=== PATIENT | female | born 1960 | race Caucasian/White ===

== ENCOUNTER → 2016-11-11 | Outpatient (CLI) | payer OTHER ==
[~2016-11-11] MED LIST: ACETAMINOPHEN650 M5 PO; ADVAIR 250-501 EACH INH; ADVAIR HFA 1112 UNIT INH; ALBUTEROL INH INH; AMITRIPTYLINE H50 M2 PO; AMLODIPINE BESYL5 MG PO; ATIVAN1 MG PO; ATIVAN2 MG PO; AUGMENTIN PO; AVELOX 400 MG400 MG PO; BENTYL10 MG PO; BYSTOLIC 5 MG5 M1 PO; BYSTOLIC10 MG PO; CIPROFLOXACIN500 M1 PO; CLONIDINE HCL0.2 M2 PO; COUMADIN 2 MG TA2 M1 PO; COUMADIN 2.5MG2.5 M1; COUMADIN 3 MG TA3 MG PO; COUMADIN 4 MG TA4 M1 PO; DOLOPHINE HCL10 MG PO; ENDOCET 10-3251 EACH; ENOXAPARIN60 MG/0.6; ENOXAPARIN80 MG/0.8; ENOXAPARIN80 MG/0.8 SQ; FEVERALL JR 32325 MG RE; FLEXERIL PO; FLONASE NS; FUROSEMIDE 40 M40 MG PO; GLYCOLAX POWDER17 G1 PO; HYDROCODON-ACE1 EAC8 PO; JANTOVEN3 MG PO; K-DUR 20 MEQ T20 MEQ PO; LASIX 40 MG TAB40 M1 PO; LORTAB 5 MG/5001 TA1 PO; LORTAB 7.5/5001 TA3 PO; LORTAB PO; LOVENOX; METHADONE PO; MIRALAX255 GM PO; MUCINEX TA600 MG/TA1 PO; NEURONTIN 300300 M1 PO; NORCO 5-325 TA1 EACH PO; NORVASC 5 MG TAB5 MG PO; OXYCONTIN PO; PERCOCET 10-321 EACH PO; PERCOCET 5-3251 EACH PO; PREDNISONE 10 M10 MG; PRILOSEC40 MG PO; PROTONIX40 M2 PO; REMERON30 MG PO; SEROQUEL PO; SEROQUEL XR 30300 M1; SEROQUEL XR 30300 M1 PO; SINGULAIR 10 MG10 MG PO; TIZANIDINE HCL4 MG PO; TYLENOL EX-STR500 M2 PO; VERAPAMIL ER120 MG PO; VERAPAMIL ER180 MG PO; XOPENEX0.63 MG/3 INH; ZANAFLEX4 M1 PO; ZOFRAN ODT4 MG PO
== END ==
LOC: RAD 11-10 01:40
DX: Z12.31 Encounter for screening mammogram for malignant neoplasm of breast (principal)

== ENCOUNTER → 2016-11-18 | Outpatient (CLI) | payer OTHER | LOC: CAT → NUC 10:30 → CAT 15:02 | DX: R07.89 Other chest pain (principal) ==

== ENCOUNTER → 2016-11-21 | Outpatient (CLI) | payer OTHER | LOC: CAT 14:48 | DX: Z13.6 Encounter for screening for cardiovascular disorders (principal) ==

== ENCOUNTER → 2017-01-17 | Outpatient (CLI) | payer OTHER | LOC: NUC 11:10 | DX: I27.2 Other secondary pulmonary hypertension (principal); I26.99 Other pulmonary embolism without acute cor pulmonale ==

== ENCOUNTER → 2018-01-10 | Outpatient (CLI) | payer OTHER | LOC: ULTRA 12:47 | DX: N63.10 Unspecified lump in the right breast, unspecified quadrant (principal) ==

== ENCOUNTER → 2018-06-27 | Outpatient (CLI) | payer OTHER | LOC: RAD 01:12 | DX: N63.11 Unspecified lump in the right breast, upper outer quadrant (principal); R92.2 Inconclusive mammogram ==

== ENCOUNTER → 2018-08-08 | Outpatient (CLI) | payer OTHER ==
--- NOTE | 2018-08-08 15:16 | 2DMMODE ---
[facility] [place] [address] 2 D/M-MODE ECHOCARDIOGRAM Name: JESENIA KRISHNAN Room #: REG [facility]#: [id number] ������������� Admission: 08/08/18 ������������� Attend Phys: Migue Liang, Discharge: ��� ������������� ��� Date of : 60 Date of Service: 08/08/18 1515 �� Report #: [id number] �������� ��������������������������������������������[id number] THIS REPORT FOR: //name// APPROVED REPORT Study performed: 08/08/2018 14:27:40 EXAM: Comprehensive 2D, Doppler, and color-flow Echocardiogram Patient Location: Out-Patient Status: routine BSA: 1.97 HR: 72 bpm BP: 110/76 mmHg Rhythm: NSR Other Information Study Quality: Good Indications Pulmonary Hypertension Dyspnea 2D Dimensions RVDd: 36.81 mm IVSd: 9.47 (7-11mm) LVOT Diam: 21.19 (18-24mm) LVDd: 51.77 mm PWd: 8.56 (7-11mm) Ascending Ao: 36.94 (22-36mm) LVDs: 30.34 (25-40mm) Aortic Root: 34.89 mm Volumes Left Atrial Volume (Systole) Single Plane 4CH: 47.29 mL Single Plane 2CH: 65.42 mL LA ESV Index: 31.00 mL/m2 Aortic Valve AoV Peak Cordell.: 1.99 m/s AO Peak Gr.: 15.79 mmHg LVOT Max P.92 mmHg LVOT Max V: 1.22 m/s IGNACIA Vmax: 2.16 cm2 Mitral Valve E/A Ratio: 1.3 MV Decel. Time: 130.14 ms [facility] [email or web address] [place] [address] 2 D/M-MODE ECHOCARDIOGRAM Name: JESENIA KRISHNAN Room #: REG CL [facility]#: [id number] ������������� Admission: 08/08/18 ������������� Attend Phys: Migue Liang, Discharge: ��� ������������� ��� Date of : 60 Date of Service: 08/08/18 1515 �� Report #: [id number] �������� ��������������������������������������������[id number] MV E Max Cordell.: 0.99 m/s MV A Cordell.: 0.74 m/s MV PHT: 37.74 ms IVRT: 55.36 ms Pulmonary Valve PV Peak Cordell.: 1.26 m/s PV Peak Gr.: 6.32 mmHg Pulmonary Vein P Vein S: 0.68 m/s P Vein D: 0.57 m/s P Vein S/D Ratio: 1.19 Tricuspid Valve TR Peak Cordell.: 3.30 m/s RAP Estimate: 5.00 mmHg TR Peak Gr.: 43.45 mmHg PA Pressure: 48.00 mmHg Left Ventricle The left ventricle is normal size. There is normal LV segmental wall motion. There is normal left ventricular wall thickness. Left ventricular systolic function is normal. LVEF is 60-65%. Moderate diastolic dysfunction is present (pseudonormal filling). Right Ventricle The right ventricle is normal size. The right ventricular systolic function is normal. Atria The left atrium size is normal. The right atrium size is normal. Aortic Valve The aortic valve is normal in structure. No aortic regurgitation is present. There is no aortic valvular stenosis. Mitral Valve The mitral valve is normal in structure. Trace mitral regurgitation. Tricuspid Valve The tricuspid valve is normal in structure. Mild to moderate tricuspid regurgitation. Estimated PAP is 45-50mmHg. Pulmonic Valve The pulmonary valve is normal in structure. Trace pulmonic [facility] [address] [place] [address] 2 D/M-MODE ECHOCARDIOGRAM Name: JESENIA KRISHNAN Room #: REG [facility]#: [id number] ������������� Admission: 08/08/18 ������������� Attend Phys: Migue Liang, Discharge: ��� ������������� ��� Date of : 60 Date of Service: 08/08/18 1515 �� Report #: [id number] �������� ��������������������������������������������[id number] regurgitation. Great Vessels The aortic root is normal in size. The ascending aorta is normal in size. IVC is normal in size and collapses >50% with inspiration. Pericardium There is no pericardial effusion. <Conclusion> The left ventricle is normal size. LVEF is 60-65%. The aortic valve is normal in structure. The mitral valve is normal in structure. Trace mitral regurgitation. The tricuspid valve is normal in structure. Mild to moderate tricuspid regurgitation. Estimated PAP is 45-50mmHg. The pulmonary valve is normal in structure. Trace pulmonic regurgitation. There is no pericardial effusion. ��������������������������������������������� <ELECTRONICALLY SIGNED> ���������������������������������������� By: Ever Breaux MD ��������������������������������������������� 08/08/18 1515 1515 1515 Ever Breaux MD /INF
== END ==
LOC: CV 08-02 07:01
DX: I07.1 Rheumatic tricuspid insufficiency (principal); I27.20 Pulmonary hypertension, unspecified; J45.909 Unspecified asthma, uncomplicated

== ENCOUNTER → 2019-02-20 | Outpatient (CLI) | payer OTHER | LOC: RAD 02-13 14:22 | DX: N63.11 Unspecified lump in the right breast, upper outer quadrant (principal) ==

== ENCOUNTER → 2019-05-30 | Outpatient (CLI) | payer OTHER | LOC: HYPER 09:58 | DX: L97.222 Non-pressure chronic ulcer of left calf with fat layer exposed (principal); I89.0 Lymphedema, not elsewhere classified; L03.115 Cellulitis of right lower limb; I48.91 Unspecified atrial fibrillation; K21.9 Gastro-esophageal reflux disease without esophagitis; I10 Essential (primary) hypertension; M54.02 Panniculitis affecting regions of neck and back, cervical region; I27.20 Pulmonary hypertension, unspecified; G47.00 Insomnia, unspecified; D64.9 Anemia, unspecified; G89.29 Other chronic pain; G47.33 Obstructive sleep apnea (adult) (pediatric); F41.9 Anxiety disorder, unspecified; Z86.711 Personal history of pulmonary embolism ==

== ENCOUNTER → 2019-06-10 | Outpatient (CLI) | payer OTHER | LOC: HYPER 13:13 | DX: L97.222 Non-pressure chronic ulcer of left calf with fat layer exposed (principal); L97.812 Non-pressure chronic ulcer of other part of right lower leg with fat layer exposed; L03.115 Cellulitis of right lower limb; I89.0 Lymphedema, not elsewhere classified; M54.02 Panniculitis affecting regions of neck and back, cervical region; G89.29 Other chronic pain; K21.9 Gastro-esophageal reflux disease without esophagitis; I10 Essential (primary) hypertension; M19.90 Unspecified osteoarthritis, unspecified site; I48.91 Unspecified atrial fibrillation; K58.9 Irritable bowel syndrome, unspecified; G47.00 Insomnia, unspecified; G47.33 Obstructive sleep apnea (adult) (pediatric); F41.9 Anxiety disorder, unspecified; Z79.01 Long term (current) use of anticoagulants ==

== ENCOUNTER → 2019-06-27 | Outpatient (CLI) | payer OTHER | LOC: RAD 12:34 | DX: J45.50 Severe persistent asthma, uncomplicated (principal) ==

== ENCOUNTER → 2020-02-27 | Outpatient (CLI) | payer OTHER ==
--- NOTE | 2020-02-27 13:20 | 2DMMODE ---
[facility] [place] [address] 2 D/M-MODE ECHOCARDIOGRAM Name: JESENIA KRISHNAN Room #: REG [facility]#: [id number] Admission: 02/27/20 Attend Phys: Migue Liang MD Discharge: Date of : 60 Report #: [id number] THIS REPORT FOR: cc: Margarito Smith MD, Neal A. MD Lammoglia, Francisco J. MD ~ APPROVED REPORT Study performed: 02/27/2020 11:15:59 EXAM: Comprehensive 2D, Doppler, and color-flow Echocardiogram Patient Location: Echo lab Status: routine BSA: 2.03 HR: 63 bpm BP: 138/78 mmHg Rhythm: NSR Other Information Study Quality: Adequate Indications Dyspnea 2D Dimensions RVDd: 39.30 mm IVSd: 9.68 (7-11mm) LVOT Diam: 18.91 (18-24mm) LVDd: 51.92 mm PWd: 10.07 (7-11mm) Ascending Ao: 31.95 (22-36mm) LVDs: 33.99 (25-40mm) Aortic Root: 29.12 mm IVC: 25.00 mm Volumes Left Atrial Volume (Systole) Single Plane 4CH: 58.31 mL Single Plane 2CH: 59.28 mL LA ESV Index: 31.00 mL/m2 Aortic Valve AoV Peak Cordell.: 1.98 m/s AO Peak Gr.: 15.68 mmHg LVOT Max P.57 mmHg LVOT Max V: 1.77 m/s IGNACIA Vmax: 2.51 cm2 [facility] [address] [address] 2 D/M-MODE ECHOCARDIOGRAM Name: JESENIA KRISHNAN Room #: REG [facility]#: [id number] Admission: 02/27/20 Attend Phys: Migue Liang, Discharge: Date of : 60 Report #: [id number] Mitral Valve E/A Ratio: 1.4 MV Decel. Time: 194.04 ms MV E Max Cordell.: 1.04 m/s MV A Cordell.: 0.76 m/s MV PHT: 56.27 ms IVRT: 55.36 ms Pulmonary Valve PV Peak Cordell.: 0.99 m/s PV Peak Gr.: 3.95 mmHg Pulmonary Vein P Vein S: 0.55 m/s P Vein A: 0.27 m/s P Vein D: 0.47 m/s P Vein A Dur.: 129.2 msec P Vein S/D Ratio: 1.17 Tricuspid Valve TR Peak Cordell.: 3.41 m/s RAP Estimate: 5.00 mmHg TR Peak Gr.: 46.63 mmHg PA Pressure: 52.00 mmHg Left Ventricle The left ventricle is normal size. There is normal LV segmental wall motion. There is normal left ventricular wall thickness. The left ventricular systolic function is normal. The left ventricular ejection fraction is within the normal range. LVEF is 60%. The left ventricular diastolic function is normal. Right Ventricle The right ventricle is normal size. The right ventricular systolic function is normal. Atria The left atrium size is normal. The right atrium size is normal. Aortic Valve The aortic valve is normal in structure. No aortic regurgitation is present. There is no aortic valvular stenosis. Mitral Valve The mitral valve is normal in structure. Trace mitral regurgitation. No evidence of mitral valve stenosis. Tricuspid Valve The tricuspid valve is normal in structure. Mild to moderate [facility] [address] [place] [address] 2 D/M-MODE ECHOCARDIOGRAM Name: JESENIA KRISHNAN Room #: REG [facility]#: [id number] Admission: 02/27/20 Attend Phys: Migue Liang, Discharge: Date of : 60 Report #: [id number] tricuspid regurgitation. PAP is estimated at 52 mmHg. Pulmonic Valve Pulmonic valve is not well visualized. Great Vessels The aortic root is normal in size. IVC is normal in size and collapses >50% with inspiration. Pericardium There is no pericardial effusion. <Conclusion> The left ventricle is normal size. LVEF is 60%. The aortic valve is normal in structure. The mitral valve is normal in structure. Trace mitral regurgitation. The tricuspid valve is normal in structure. Mild to moderate tricuspid regurgitation. PAP is estimated at 52 mmHg. Pulmonic valve is not well visualized. There is no pericardial effusion. <ELECTRONICALLY SIGNED> By: Ever Breaux MD 02/27/20 1320 19 19 Ever Breaux MD /INF
== END ==
LOC: CV 10:55
PROVIDERS: ATTEND Internal Medicine
DX: I07.1 Rheumatic tricuspid insufficiency (principal); J45.50 Severe persistent asthma, uncomplicated

== ENCOUNTER → 2020-03-11 | Outpatient (CLI) | payer OTHER ==
[~2020-03-11] MED LIST changes: +ACCUNEB SO1.25 MG/1 INH; +CARDIZEM CD 18180 M3 PO; +CELEXA 10 MG TA10 M1 PO; +CODEINE-GUAIFE120 ML PO; +DEMADEX20 MG PO; +DUPIXENT200 MG/1.1 SUBQ; +JANTOVEN6 MG PO; +NEURONTIN 300M300 M2 PO; +PROAIR HFA8.5 GM INH; +RISPERDAL2 MG PO; +ROXICODONE5 M2 PO; +SYMBICORT160 MCG/4. INH; +TOPROL XL50 MG
== END ==
LOC: SJCVC 13:52
PROVIDERS: ATTEND Internal Medicine Cardiovascular Disease
DX: I45.10 Unspecified right bundle-branch block (principal); R94.31 Abnormal electrocardiogram [ECG] [EKG]; I10 Essential (primary) hypertension; E78.00 Pure hypercholesterolemia, unspecified; I27.20 Pulmonary hypertension, unspecified; I48.0 Paroxysmal atrial fibrillation; I89.0 Lymphedema, not elsewhere classified; D68.59 Other primary thrombophilia; I26.09 Other pulmonary embolism with acute cor pulmonale; K21.9 Gastro-esophageal reflux disease without esophagitis; J45.909 Unspecified asthma, uncomplicated; M19.90 Unspecified osteoarthritis, unspecified site; Z82.49 Family history of ischemic heart disease and other diseases of the circulatory system; Z95.828 Presence of other vascular implants and grafts; Z79.899 Other long term (current) drug therapy

== ENCOUNTER → 2020-03-12 | Outpatient (CLI) | payer OTHER ==
[~2020-03-12] MED LIST changes: -ACCUNEB SO1.25 MG/1 INH; -CARDIZEM CD 18180 M3 PO; -CELEXA 10 MG TA10 M1 PO; -CODEINE-GUAIFE120 ML PO; -DEMADEX20 MG PO; -DUPIXENT200 MG/1.1 SUBQ; -JANTOVEN6 MG PO; -NEURONTIN 300M300 M2 PO; -PROAIR HFA8.5 GM INH; -RISPERDAL2 MG PO; -ROXICODONE5 M2 PO; -SYMBICORT160 MCG/4. INH; -TOPROL XL50 MG
== END ==
LOC: RAD 11:33
PROVIDERS: ATTEND Internal Medicine
DX: J45.50 Severe persistent asthma, uncomplicated (principal); I27.20 Pulmonary hypertension, unspecified; G47.33 Obstructive sleep apnea (adult) (pediatric)

== ENCOUNTER → 2020-03-16 | Outpatient (CLI) | payer OTHER ==
[~2020-03-16] MED LIST changes: +ACCUNEB SO1.25 MG/1 INH; +CARDIZEM CD 18180 M3 PO; +CELEXA 10 MG TA10 M1 PO; +CODEINE-GUAIFE120 ML PO; +DEMADEX20 MG PO; +DUPIXENT200 MG/1.1 SUBQ; +JANTOVEN6 MG PO; +NEURONTIN 300M300 M2 PO; +PROAIR HFA8.5 GM INH; +RISPERDAL2 MG PO; +ROXICODONE5 M2 PO; +SYMBICORT160 MCG/4. INH; +TOPROL XL50 MG
== END ==
LOC: SJCVC 11:10
PROVIDERS: ATTEND Internal Medicine Cardiovascular Disease
DX: Z51.81 Encounter for therapeutic drug level monitoring (principal); I48.0 Paroxysmal atrial fibrillation; K21.9 Gastro-esophageal reflux disease without esophagitis; I10 Essential (primary) hypertension; Z79.01 Long term (current) use of anticoagulants; Z79.899 Other long term (current) drug therapy

== ENCOUNTER → 2020-03-18 | Outpatient (CLI) | payer OTHER ==
[~2020-03-18] VITALS: Ht 157.5 cm; Wt 101.6 kg
[2020-03-18 07:19] VITALS: BP 127/75
[2020-03-18 07:23] LABS: HEMATOCRIT 36.4 % (37.0-47.0); HEMOGLOBIN 11.6 gm/dL (12.0-15.0); MCH 27.8 pg (26.0-34.0); RBC 4.18 mil/uL (4.20-5.00); RDW 13.7 % (10.5-14.5); WBC 7.1 thou/uL (4.0-11.0)
[2020-03-18 07:40] LABS: CALCIUM 9.5 mg/dL (8.5-10.1); CREATININE 0.7 mg/dL (0.6-1.0)
[2020-03-18 07:53] LABS: INR 1.1; PROTIME 11.7 Seconds (9.3-11.4)
--- NOTE | 2020-03-19 17:10 | CATHLAB ---
[facility] [place] [address] INVASIVE PROCEDURE REPORT Name: JESENIA KRISHNAN Room #: REG [facility].#: [id number] Admission: 03/18/20 Attend Phys: Karthik Bang MD, Discharge: Date of : 60 Report #: [id number] THIS REPORT FOR: cc: Margarito Smith MD, Neal A. MD Mancuso, Gerald M. MD [facility] ~ APPROVED REPORT Study performed: 03/18/2020 07:46:05 Patient Details Patient Status: Out-Patient Room #: The patient is a 59 year-old female Event Personnel Karthik Bang Corporate Travel Coordinator, Gloria Kinsey RN RN, Krupa Matamoros RN RN, Margarette Vizcarra Monitor, Hannah Tolentino RTR, ANDERS Scrub, Walt Damon RTR Scrub Procedures Performed Art Access - R femoral artery* Abdi Access - R femoral vein Right and Left Heart Cath w/or w/o Coronarie [id number] [facility] Hemostasis w/ Mynx [id number] Initial Mod Sed Same Phys/QHP Gr5y [id number] 12660 Mod Sed Same Phys/QHP Ea [id number] Indication Chest pain Procedure Narrative The Right Groin^ was infiltrated with subcutaneous anesthesia. A Right Heart Catheterization was performed with a 7 Fr. Payson-Molly catheter and pressure were recorded. Cardiac outputs were obtained by the Thermal Dilution method. A PINNACLE 6FR Sheath #[id number] sheath was inserted into the RFA 6F^. Coronary angiography was performed using coronary diagnostic catheters. The right coronary system was accessed and visualized with a JR4 catheter. The left coronary system was accessed and visualized with a JL4 catheter. The left ventricle was accessed and visualized with a STR PIG catheter. Closure device was deployed with a Fr MYNX CONTROL 6F/7F L#[id number]. Hemostasis was obtained with manual pressure following sheath removal without any complications. A hematoma occurred. MANUAL PRESSURE FOR VENOUS SHEATH. Intraoperative Conscious Sedation [facility] [address] [place] [address] INVASIVE PROCEDURE REPORT Name: JESENIA KRISHNAN Room #: [facility]#: [id number] Admission: 03/18/20 Attend Phys: Karthik Bang, Discharge: Date of : 60 Report #: [id number] Sedation start time: 0849 Case end Time: 934 Fentanyl 100 mcg Versed 2 mg Fluoro Time: 3.30 minutes Dose: DAP 6150.50 cGycm2 627 mGy Contrast Type and Amount: Omnipaque 155 ml Hemodynamics The right atrial mean pressure is 11 mmHg. The right ventricular pressure is 38/3 mmHg. The pulmonary artery pressure is 43/19 mmHg with a mean of 28 mmHg. The mean pulmonary capillary wedge pressure is 17 mmHg. The aortic pressure is 131/78 mmHg with a mean of 101 mmHg. The left ventricular pressure is 134/10 mmHg with a mean of mmHg. The left ventricular end diastolic pressure is 28 mmHg. The cardiac output using the Josefa method is 8.05 L/min. The cardiac index using the Josefa method is 4.02 L/min/m2. Conclusion #1. Right heart catheterization performed with cardiac output by thermodilution. See above hemodynamics. #2 normal left jugular size systolic function lower limits of normal EF 50 to 55% #3 abdominal aortogram normal caliber aorta with brisk distal flow no aneurysm formation. Mild tortuosity. #4 left main large and free of disease giving rise to LAD and circumflex #5 normal LAD and circumflex system circumflex nondominant no occlusive disease noted. #6 dominant right coronary artery no occlusive disease Recommendations and plan: Continue aggressive risk factor modification. There is no evidence of nephric and pulmonary hypertension or volume overload. See above hemodynamics. No significant coronary artery disease with preserved LV function. <ELECTRONICALLY SIGNED> By: Karthik Bang MD, FACC 03/19/201709 09 09 Karthik Bang MD, FACC /INF
== END ==
LOC: CATH 06:29
PROVIDERS: ATTEND Internal Medicine Cardiovascular Disease
DX: R07.9 Chest pain, unspecified (principal); I10 Essential (primary) hypertension; J45.909 Unspecified asthma, uncomplicated; E78.00 Pure hypercholesterolemia, unspecified; I48.0 Paroxysmal atrial fibrillation; F41.9 Anxiety disorder, unspecified; F32.9 Major depressive disorder, single episode, unspecified; K21.9 Gastro-esophageal reflux disease without esophagitis; G47.33 Obstructive sleep apnea (adult) (pediatric); M19.90 Unspecified osteoarthritis, unspecified site; I89.0 Lymphedema, not elsewhere classified; D68.59 Other primary thrombophilia; I26.09 Other pulmonary embolism with acute cor pulmonale; Z90.49 Acquired absence of other specified parts of digestive tract; Z90.710 Acquired absence of both cervix and uterus; Z98.890 Other specified postprocedural states; Z79.899 Other long term (current) drug therapy; Z79.01 Long term (current) use of anticoagulants; Z95.828 Presence of other vascular implants and grafts; Z82.49 Family history of ischemic heart disease and other diseases of the circulatory system; Z83.3 Family history of diabetes mellitus

== ENCOUNTER → 2020-03-20 | Outpatient (CLI) | payer OTHER | LOC: SJCVC 15:59 | PROVIDERS: ATTEND Internal Medicine Cardiovascular Disease | DX: Z51.81 Encounter for therapeutic drug level monitoring (principal); I48.0 Paroxysmal atrial fibrillation; K21.9 Gastro-esophageal reflux disease without esophagitis; I10 Essential (primary) hypertension; Z68.41 Body mass index [BMI] 40.0-44.9, adult; Z79.01 Long term (current) use of anticoagulants; Z79.899 Other long term (current) drug therapy ==

== ENCOUNTER → 2020-03-23 | Outpatient (CLI) | payer OTHER | LOC: SJCVC 12:00 | PROVIDERS: ATTEND Internal Medicine Cardiovascular Disease | DX: Z51.81 Encounter for therapeutic drug level monitoring (principal); I48.0 Paroxysmal atrial fibrillation; K21.9 Gastro-esophageal reflux disease without esophagitis; I10 Essential (primary) hypertension; Z68.41 Body mass index [BMI] 40.0-44.9, adult; Z79.01 Long term (current) use of anticoagulants; Z79.899 Other long term (current) drug therapy ==

== ENCOUNTER → 2020-03-24 | Outpatient (CLI) | payer OTHER | LOC: SJCVC 11:59 | PROVIDERS: ATTEND Internal Medicine Cardiovascular Disease | DX: Z51.81 Encounter for therapeutic drug level monitoring (principal); Z79.01 Long term (current) use of anticoagulants ==

== ENCOUNTER → 2020-03-31 | Outpatient (CLI) | payer OTHER | LOC: SJCVC 11:22 | PROVIDERS: ATTEND Internal Medicine Cardiovascular Disease | DX: Z51.81 Encounter for therapeutic drug level monitoring (principal); I48.0 Paroxysmal atrial fibrillation; K21.9 Gastro-esophageal reflux disease without esophagitis; I10 Essential (primary) hypertension; G47.00 Insomnia, unspecified; Z68.41 Body mass index [BMI] 40.0-44.9, adult; Z79.01 Long term (current) use of anticoagulants; Z79.899 Other long term (current) drug therapy; Z86.711 Personal history of pulmonary embolism ==

== ENCOUNTER → 2020-04-08 | Outpatient (CLI) | payer OTHER | LOC: SJCVC 11:36 | PROVIDERS: ATTEND Internal Medicine Cardiovascular Disease | DX: Z51.81 Encounter for therapeutic drug level monitoring (principal); I48.0 Paroxysmal atrial fibrillation; K21.9 Gastro-esophageal reflux disease without esophagitis; I10 Essential (primary) hypertension; Z68.41 Body mass index [BMI] 40.0-44.9, adult; Z79.01 Long term (current) use of anticoagulants; Z79.899 Other long term (current) drug therapy ==

== ENCOUNTER → 2020-04-13 | Outpatient (CLI) | payer OTHER | LOC: SJCVC 11:12 | PROVIDERS: ATTEND Internal Medicine Cardiovascular Disease | DX: Z51.81 Encounter for therapeutic drug level monitoring (principal); I48.0 Paroxysmal atrial fibrillation; I10 Essential (primary) hypertension; K21.9 Gastro-esophageal reflux disease without esophagitis; Z68.41 Body mass index [BMI] 40.0-44.9, adult; Z79.01 Long term (current) use of anticoagulants; Z79.899 Other long term (current) drug therapy ==

== ENCOUNTER 2020-04-24 12:20 | Emergency (ER) | payer OTHER ==
[~2020-04-24] VITALS: Ht 157.5 cm; Wt 102.1 kg
[2020-04-24 13:53] LABS: INR 2.8; PROTIME 28.5 Seconds (9.3-11.4)
[2020-04-24 14:40] VITALS: BP 108/76
== END 2020-04-24 14:41 | disposition home or self-care (01) ==
LOC: ER 12:20
PROVIDERS: Physician Assistant
DX: M79.601 Pain in right arm (principal); R22.31 Localized swelling, mass and lump, right upper limb; I10 Essential (primary) hypertension; J45.909 Unspecified asthma, uncomplicated; E78.5 Hyperlipidemia, unspecified; K21.9 Gastro-esophageal reflux disease without esophagitis; Z86.2 Personal history of diseases of the blood and blood-forming organs and certain disorders involving the immune mechanism; Z90.49 Acquired absence of other specified parts of digestive tract; Z90.710 Acquired absence of both cervix and uterus; Z79.899 Other long term (current) drug therapy; Z88.6 Allergy status to analgesic agent; Z88.8 Allergy status to other drugs, medicaments and biological substances

== ENCOUNTER → 2020-04-28 | Outpatient (CLI) | payer OTHER | LOC: BC 11:30 | PROVIDERS: ATTEND Family Medicine | DX: Z12.31 Encounter for screening mammogram for malignant neoplasm of breast (principal) ==

== ENCOUNTER → 2020-05-21 | Outpatient (CLI) | payer OTHER | LOC: BC 12:40 | PROVIDERS: ATTEND Family Medicine | DX: R92.2 Inconclusive mammogram (principal); N63.20 Unspecified lump in the left breast, unspecified quadrant ==

== ENCOUNTER → 2021-07-14 | Outpatient (CLI) | payer OTHER | LOC: SJCVC 14:09 | PROVIDERS: ATTEND Internal Medicine Cardiovascular Disease | DX: I26.09 Other pulmonary embolism with acute cor pulmonale (principal); I48.0 Paroxysmal atrial fibrillation; E78.5 Hyperlipidemia, unspecified; Z79.01 Long term (current) use of anticoagulants; Z95.828 Presence of other vascular implants and grafts; I27.20 Pulmonary hypertension, unspecified; G47.33 Obstructive sleep apnea (adult) (pediatric); I10 Essential (primary) hypertension; D68.59 Other primary thrombophilia; J45.909 Unspecified asthma, uncomplicated; M19.90 Unspecified osteoarthritis, unspecified site; Z90.49 Acquired absence of other specified parts of digestive tract; Z98.890 Other specified postprocedural states; Z79.899 Other long term (current) drug therapy ==